=== PATIENT | male | born 1955 ===

== ENCOUNTER → 2020-03-22 10:07 | Outpatient (CLI) | payer MEDICARE, OTHER, SELFPAY ==
[2020-03-23 17:43] LABS: COVID19 Sendout Not Detected (Not Detect)
== END ==
PROVIDERS: PCP General Practice; Visit Provider Physician Assistant
DX: Z11.59 Encounter for screening for other viral diseases (principal)
CPT/HCPCS: 87635

== ENCOUNTER 2020-03-25 12:07 | Day surgery (SDC) | payer MEDICARE, OTHER, SELFPAY ==
[2020-03-20 14:39] VITALS: BMI 26.6
[2020-03-25] VITALS (8 sets, daily range): BP systolic 117–164; BP diastolic 65–105; PULSE 70–90; RESP 11–95; TEMP 36.1–36.8; O2SAT 94–100; BMI 26.6
[2020-03-25] MEDS: LACTATED RINGERS 1,000 ML 100 ML IV (12:32)
[2020-03-25] MEDS: LACTATED RINGERS 1,000 ML 42 ML IV (12:58)
--- NOTE | 2020-03-25 13:14 | SUR.OPER ---
Supine on padded OR bed, head on pillow, arms secured on padded arm boards at <90 degrees abduction, legs uncrossed, safety belt at thigh, tape over blanket over lower legs.
--- NOTE | 2020-03-25 13:18 | PM.PREOP ---
Pre-operative Note COVID-19 COVID-19 status: Negative Interval Note History & Physical reviewed/Exam performed by Physician: Yes Changes to H&P: No
[2020-03-25] MEDS: CEFAZOLIN 2 GM/100 ML FROZ.PIGGY IV (13:45)
[2020-03-25] MEDS: BUPIVACAINE 0.25% (PF) VIAL 30 ML INJ (14:02)
--- NOTE | 2020-03-25 15:09 | PM.OP.1 ---
Operative Date/Time/Diagnoses Date of procedure: 03/25/20 Time of procedure: 15:09 Pre-op diagnosis: right inguinal hernia Post-op diagnosis: same Procedure & Clinicians Procedure: open right inguinal hernia repair Same procedure as scheduled: Yes Indications: Symptomatic right inguinal hernia Surgeon: Yusef Kent Anesthesia Type: General Operative Notes Findings: Direct floor defect Specimen(s): none sent Estimated Blood Loss (mL): 20 Procedure in detail: The patient was placed supine on the table and bilateral lower extremity compression devices were applied. Anesthesia was induced they were intubated with an LMA and received 2g of Ancef. A time-out was performed. They were prepped and draped in sterile fashion. The right external inguinal ring and the anterior superior iliac crest were identified and marked. 1 finger breath above the right inguinal ligament the skin was infiltrated with 0.25% bupivacaine. The skin incision was made here and the subcutaneous tissues were divided with electrocautery exposing the external oblique aponeurosis which was then opened along the direction of its fibers. The ilioinguinal nerve was identified on the anterior aspect of the cord and protected. Using a kittner cord was carefully dissected away from the inguinal canal adjacent to the pubic tubercle. The cord was freed and encircled with a [place] drain. A direct floor defect was identified. The cremasteric fibers surrounding the cord were divided using electrocautery. The vas deferens and the testicular vessels were preserved and protected. There was no indirect hernia. A plug of Prolene mesh was placed into the floor defect and secured with Vicryl suture. I selected a 7x 15 cm lightweight Pro Loop hernia mesh. The inferior medial aspect of the mesh was anchored to the periosteum of the pubic tubercle such that there was approximately 2 cm of tubercle overlap with 0 Prolene and then was run continuously along the inferior edge of the mesh to the shelving edge of the inguinal ligament. Interrupted 3 0 Vicryl suture was used to anchor the superior aspect of the mesh to the conjoined tendon in several places. The tails were then reapproximated around the spermatic cord loosely. The tails of the mesh were then tucked under the external oblique aponeurosis. The repair was checked for hemostasis. The wound was irrigated with sterile saline. The external oblique aponeurosis was reapproximated in a running fashion using 3 0 Vicryl. The subcutaneous tissues were reapproximated with 3 0 Vicryl skin closed with 4 0 Monocryl followed by the application of Dermabond. At the end of the operation ensure that both testicles were within the scrotum. The sponge instrument count at the end operation was correct. The patient emerged from anesthesia was extubated and transferred to the postoperative care unit in stable condition. A total of 30 ml of of 0.25% bupivicaine was used to infiltrate the skin. Complications: none Post-operative Condition: stable Disposition: same day surgery
[2020-03-25] MEDS: HYDROCODONE/ACET 5/325 TABLET 1 TAB PO (15:28)
[2020-03-25] MEDS: ONDANSETRON 4 MG/2 ML INJ IV (15:29)
[2020-03-25] MEDS: METOCLOPRAMIDE 10 MG/2 ML INJ IV (15:29)
--- NOTE | 2020-03-25 16:22 | SUR.PHASEII ---
called, d/c instructions discussed, pt dressed and left in stable condition. Pt and aware to call MD if unable to void.
== END 2020-03-25 16:00 | disposition home or self-care (01) ==
PROVIDERS: PCP General Practice; Referring Provider Surgery; Visit Provider Surgery
PROC: (CPT 49505; principal; 2020-03-25 13:15)
DX: K40.90 Unilateral inguinal hernia, without obstruction or gangrene, not specified as recurrent (principal); I10 Essential (primary) hypertension; E78.5 Hyperlipidemia, unspecified; G47.33 Obstructive sleep apnea (adult) (pediatric); F41.9 Anxiety disorder, unspecified; F32.9 Major depressive disorder, single episode, unspecified; F17.210 Nicotine dependence, cigarettes, uncomplicated
CPT/HCPCS: 49505; C1781; J0690; J1100; J2250; J2405; J2704; J2765; J3010

== ENCOUNTER → 2023-08-01 12:32 | Outpatient (CLI) | payer MEDICARE, OTHER, SELFPAY ==
--- NOTE | 2023-08-01 | DI.US.S_ITS ---
PROCEDURE: US ABDOMEN LIMITED INDICATIONS: SUSPECT RT INGUINAL HERNIA TECHNIQUE: Real-time focused scanning was performed of the abdomen, with image documentation. COMPARISON: None. FINDINGS: No sonographic evidence of a right inguinal hernia, status post repair. IMPRESSION: No evidence of a right inguinal hernia. Dictated by: Rigo Moss M.D. on 08/01/2023 at 15:27 Approved by: Rigo Moss M.D. on 08/01/2023 at 15:27
== END ==
PROVIDERS: PCP Student in an Organized Health Care Education/Training Program; Referring Provider Student in an Organized Health Care Education/Training Program; Visit Provider Student in an Organized Health Care Education/Training Program
DX: R10.30 Lower abdominal pain, unspecified (principal)
CPT/HCPCS: 76705

== ENCOUNTER → 2023-08-17 11:36 | Outpatient (CLI) | payer MEDICARE, OTHER, SELFPAY ==
[2023-08-17 12:17] LABS: BUN Creatinine Ratio 26.5 (6-22); Blood Urea Nitrogen 18 mg/dL (9-20); Calcium 9.1 mg/dL (8.4-10.2); Carbon Dioxide 26 mmol/L (22-32); Chloride 104 mmol/L (98-107); Estimated Glomerular Filt Rate > 60 mL/min (>60); Glucose 114 mg/dL (80-110); HEMOLYSIS 23 (0-50); Potassium 4.2 mmol/L (3.4-5.1); Sodium 136 mmol/L (137-145)
--- NOTE | 2023-08-17 12:26 | DI.CT.S_ITS ---
PROCEDURE: CT ABDOMEN PELVIS W CON INDICATIONS: eval Right groin pain remote hernia repair TECHNIQUE: After the administration of intravenous contrast, axial sections acquired from the lung bases to the pubic symphysis. Coronal and sagittal reformats were performed. For radiation dose reduction, the following was used: automated exposure control, adjustment of mA and/or kV according to patient size. COMPARISON: None. FINDINGS: Image quality: Diagnostic. Lower Chest: Moderate LAD calcifications. ABDOMEN: Liver: No solid mass. Gallbladder: No radiopaque gallstones or wall thickening. Biliary ducts: No biliary dilation. Pancreas: No ductal dilation. Spleen: Size is within normal limits. Adrenal Glands: No adrenal nodules. Kidneys and Ureters: No hydronephrosis. No solid mass. No complex renal cystic lesion which requires follow up. Punctate nonobstructing left-sided nephrolithiasis. Stomach and Bowel: Normal colonic caliber, without significant wall thickening. Peritoneum: No abnormal intraperitoneal fluid. No free air. Ventral Wall: No hernia. Abdominal Nodes: No retroperitoneal or mesenteric adenopathy by size criteria. Vessels: Aorta and inferior vena cava are normal in size. PELVIS: Pelvic Organs: Unremarkable. Bladder: Diffuse urinary bladder wall thickening. Pelvic Nodes: No enlarged lymph nodes. Miscellaneous: No inguinal hernias are seen. Bones: No aggressive osseous abnormality. IMPRESSION: No findings to explain the patient's right lower quadrant pain. No recurrent hernia. Moderate LAD calcifications. Dictated by: Rigo Moss M.D. on 08/17/2023 at 13:14 Approved by: Rigo Moss M.D. on 08/17/2023 at 13:23
== END ==
PROVIDERS: PCP Student in an Organized Health Care Education/Training Program; Referring Provider Surgery; Visit Provider Surgery
DX: R10.31 Right lower quadrant pain (principal); I25.10 Atherosclerotic heart disease of native coronary artery without angina pectoris; Z98.890 Other specified postprocedural states; Z87.19 Personal history of other diseases of the digestive system
CPT/HCPCS: 36415; 74177; 80048; Q9967